=== PATIENT | female | born 1930 | race Caucasian/White ===

== ENCOUNTER 2017-09-20 21:08 | Emergency (ER) | payer MEDICARE ==
[~2017-09-20] VITALS: Ht 165.1 cm; Wt 63.5 kg
[~2017-09-20 21:08] MED LIST: ASPI325 PO; CLOP75 PO; HYDCHL25 PO; STATIN PO
== END 2017-09-20 23:05 | disposition home or self-care (01) ==
LOC: ER 21:08
DX: S00.03XA Contusion of scalp, initial encounter (principal); S20.219A Contusion of unspecified front wall of thorax, initial encounter; S40.012A Contusion of left shoulder, initial encounter; S40.011A Contusion of right shoulder, initial encounter; Z88.6 Allergy status to analgesic agent; Z91.013 Allergy to seafood; Z91.09 Other allergy status, other than to drugs and biological substances; Z79.899 Other long term (current) drug therapy; Z79.82 Long term (current) use of aspirin; Z79.02 Long term (current) use of antithrombotics/antiplatelets; Z87.891 Personal history of nicotine dependence; W18.2XXA Fall in (into) shower or empty bathtub, initial encounter
CPT/HCPCS: 70450; 99284

== ENCOUNTER 2017-12-20 16:52 | Emergency (ER) | payer MEDICARE ==
[~2017-12-20] VITALS: Ht 160 cm; Wt 46.7 kg
[2017-12-20] MEDS ORDERED: AMLO5 PO (18:18)
[2017-12-20] MEDS ORDERED: Norco 5-325 Ta1 EACH PO (19:11)
[2017-12-20] MEDS ORDERED: Colace100 MG PO (19:11)
== END 2017-12-20 19:19 | disposition home or self-care (01) ==
LOC: ER 16:52
DX: S42.031A Displaced fracture of lateral end of right clavicle, initial encounter for closed fracture (principal); I10 Essential (primary) hypertension; Z87.891 Personal history of nicotine dependence; Z88.6 Allergy status to analgesic agent; Z91.013 Allergy to seafood; Z91.048 Other nonmedicinal substance allergy status; Z79.899 Other long term (current) drug therapy; W01.0XXA Fall on same level from slipping, tripping and stumbling without subsequent striking against object, initial encounter
CPT/HCPCS: 73030; 99283